=== PATIENT | female | born 1995 | race African-American/Black ===

== ENCOUNTER 2024-01-31 10:30 | Day surgery (SDC) | payer OTHER ==
[2024-01-31 11:17] VITALS: BMI 46.0
== END 2024-01-31 14:03 | disposition home or self-care (01) ==
LOC: CSHLD/OP 10:30
PROVIDERS: ATTEND Family Medicine
DX: Z36.89 Encounter for other specified antenatal screening (principal); O30.009 Twin pregnancy, unspecified number of placenta and unspecified number of amniotic sacs, unspecified trimester; Z3A.00 Weeks of gestation of pregnancy not specified
CPT/HCPCS: 76819

== ENCOUNTER 2024-02-10 12:52 | Inpatient (IN) | payer OTHER ==
[2024-02-10 13:46] VITALS: BMI 46.6
[2024-02-10] MEDS ORDERED: Diphenoxylate HCl/Atropine Tablet PO PRN (14:53)
[2024-02-10] MEDS ORDERED: Ondansetron PF 4 MG/2 ML Vial IVP PRN ×2 (14:53→20:26)
[2024-02-10] MEDS ORDERED: hydrALAZINE 20 MG/ML VIAL SLOW IVP PRN (14:53)
[2024-02-10] MEDS ORDERED: Carboprost 250 MCG/ML AMP IM PRN (14:53)
[2024-02-10] MEDS ORDERED: Promethazine HCl 25 MG/ML VIAL IM PRN ×3 (14:53→22:25)
[2024-02-10] MEDS ORDERED: Tranexamic Acid 1,000 MG/10 ML VIAL IVP PRN (14:53)
[2024-02-10] MEDS ORDERED: Lidocaine 1% (PF) 30 ML VIAL SC PRN (14:53)
[2024-02-10] MEDS ORDERED: Acetaminophen 500 MG TAB PO PRN (14:53)
[2024-02-10] MEDS ORDERED: Misoprostol 200 MCG TAB PR PRN (14:53)
[2024-02-10] MEDS ORDERED: Methylergonovine 0.2 MG/ML VIAL IM PRN (14:53)
[2024-02-10] MEDS ORDERED: HYDROcodone/Acetaminophen 5/325 mg Tablet PO PRN (14:53)
[2024-02-10] MEDS ORDERED: fentaNYL 50 mcg/mL 1 mL Vial SLOW IVP PRN (14:53)
[2024-02-10] MEDS ORDERED: Ibuprofen 800 MG TAB PO PRN (14:53)
[2024-02-10] MEDS ORDERED: Misoprostol 100 MCG TAB VAG SCH (15:00)
[2024-02-10] MEDS ORDERED: Lactated Ringer's 1,000 ML IV SCH (15:00)
[2024-02-10] MEDS ORDERED: Oxytocin 30 units/NS 500 ML 500 ML IV SCH ×2 (15:00)
[2024-02-10 15:18] LABS: Hemoglobin 12.1 g/dL (12.0-15.5); Mean Corpuscular HGB CONC 32.7 g/dL (32.0-36.0); Mean Corpuscular Hemoglobin 24.4 pg (27.0-33.0); Mean Corpuscular Volume 74.7 fL (81.6-98.3); Mean Platelet Volume 13.8 fL (7.4-10.4); Platelet Count 226 10x3/uL (150-450); RBC Distribution Width 15.3 % (11.5-14.5); Red Blood Cell (RBC) Count 4.95 10x6/uL (3.90-5.03); White Blood Cell (WBC) Count 6.7 10x3/uL (3.5-10.5)
[2024-02-10 15:44] LABS: Syphilis Antibody Nonreactive (Nonreactive); Syphilis Antibody Index 0.06 S/CO (<1.00 Non-Reactive)
[2024-02-10 15:45] LABS: HBsAg Index 0.15 S/CO (0-0.99); Hep B Surf Ag - L&D Non-Reactive S/CO (NonReactive)
[2024-02-10] MEDS ORDERED: Penicillin G 2.5 MILL.units 2.5 MILL.UNITS in Premix 1 BAG IVPB SCH (15:45)
[2024-02-10] MEDS: Oxytocin 30 units/NS 500 ML 500 ML IV SCH (17:11)
[2024-02-10] MEDS: Penicillin G Potassium 5 MILL.UNITS in Sodium Chloride 0.9% 100 ML IVPB SCH (17:15)
[2024-02-10] MEDS ORDERED: Penicillin G Potassium 2.5 UNITS in Syringe 0 ML IVPB SCH (19:45)
[2024-02-10] MEDS: fentaNYL/Ropivacaine Epidural 100 ML ONE (20:23)
[2024-02-10] MEDS ORDERED: ePHEDrine Sulfate 50 MG/10 ML VIAL SLOW IVP PRN (20:26)
[2024-02-10] MEDS ORDERED: Moisturizing Cream (Eucerin) 113 GM JAR TOP PRN ×2 (20:26→22:25)
[2024-02-10] MEDS ORDERED: diphenhydrAMINE 50 MG/ML VIAL IVP PRN ×2 (20:26→22:25)
[2024-02-10] MEDS ORDERED: Acetaminophen 325 MG TAB PO PRN (20:26)
[2024-02-10] MEDS ORDERED: Naloxone HCl 0.4 mg/ml Vial IVP PRN ×4 (20:26→22:25)
[2024-02-10] MEDS ORDERED: Lactated Ringer's 500 ML IV PRN (20:26)
[2024-02-10] MEDS ORDERED: fentaNYL 2 mcg/Ropivacaine 0.2% Epidural 100 ML CADD EPIDURAL SCH (20:30)
[2024-02-10] MEDS ORDERED: Communication Order-Pharmacy FS SCH ×2 (20:30→22:30)
[2024-02-10] MEDS ORDERED: Naloxone HCl 0.4 mg/ml Vial IV PRN (22:25)
[2024-02-11] MEDS: Ketorolac Tromethamine 30 MG (1 mL) VIAL IVP PRN (01:09)
[2024-02-11] MEDS ORDERED: Ondansetron PF 4 MG/2 ML Vial IVP PRN (02:02)
[2024-02-11] MEDS ORDERED: Promethazine HCl 25 MG/ML VIAL IM PRN (02:02)
[2024-02-11] MEDS ORDERED: Bisacodyl 10 MG SUPP PR PRN (02:02)
[2024-02-11] MEDS ORDERED: Lanolin Ointment 7 GM TUBE TOP PRN (02:02)
[2024-02-11] MEDS ORDERED: diphenhydrAMINE 25 MG CAP PO PRN (02:02)
[2024-02-11] MEDS ORDERED: hydrALAZINE 20 MG/ML VIAL SLOW IVP PRN (02:02)
[2024-02-11 03:24] LABS: Hematocrit 35.2 % (34.9-44.5); Mean Corpuscular HGB CONC 31.3 g/dL (32.0-36.0); Mean Corpuscular Hemoglobin 23.9 pg (27.0-33.0); Mean Corpuscular Volume 76.4 fL (81.6-98.3); Mean Platelet Volume 12.8 fL (7.4-10.4); Platelet Count 224 10x3/uL (150-450); Red Blood Cell (RBC) Count 4.61 10x6/uL (3.90-5.03); White Blood Cell (WBC) Count 13.4 10x3/uL (3.5-10.5)
[2024-02-11] MEDS: Dexamethasone 4 mg/ml Vial ONE (04:51)
[2024-02-11] MEDS: Oxytocin 30 units/NS 500 ML 500 ML ONE (04:51)
[2024-02-11] MEDS: CEFAZOLIN 2 GM VIAL ONE (04:52)
[2024-02-11] MEDS: Azithromycin 500 MG VIAL ONE (04:52)
[2024-02-11] MEDS: Morphine PF 10 MG/10 ML VIAL ONE (04:52)
[2024-02-11] MEDS: Oxytocin 10 UNITS/ML VIAL ONE (04:52)
[2024-02-11] MEDS: Ondansetron PF 4 MG/2 ML Vial ONE (04:52)
[2024-02-11] MEDS: PHENYLEPHRINE-NS 100 MCG/ML 10 ML SYRINGE ONE (04:53)
[2024-02-11] MEDS: Ondansetron PF 4 MG/2 ML Vial IVP PRN (05:17)
[2024-02-11] MEDS: Ketorolac Tromethamine 30 MG (1 mL) VIAL IVP SCH (06:11)
[2024-02-11] MEDS: Boostrix 0.5 ML (Tdap) VIAL (>/=7 yrs of age) IM ONE (07:21)
[2024-02-11] MEDS: Ferrous Sulfate 325 MG TAB PO SCH (07:52)
[2024-02-11] MEDS: Docusate 100 MG CAP PO SCH (07:52)
[2024-02-11] MEDS: Prenatal Vitamin 1 TAB PO SCH (07:53)
[2024-02-11] MEDS ORDERED: Meperidine HCl/PF 25 MG (1 mL) VIAL IM PRN (10:30)
[2024-02-11] MEDS: HYDROcodone/Acetaminophen 5/325 mg Tablet PO PRN ×2 (18:11→22:23)
[2024-02-12] MEDS: Ibuprofen 800 MG TAB PO SCH (05:57)
[2024-02-12] MEDS: Simethicone Chewable 80 MG TAB PO PRN (23:33)
[2024-02-13 08:08] VITALS: BP 140/67; TEMP 98.1
== END 2024-02-13 14:00 | disposition home or self-care (01) | DRG 787 ==
LOC: CSHLD/OP 12:52 → CSHLD 14:52 → CSHPP 02-11 01:15
PROVIDERS: ADMIT Family Medicine; ATTEND Family Medicine
PROC: 10D00Z1 Extraction of Products of Conception, Low, Open Approach (ICD-10-PCS; principal; 2024-02-10)
PROC: 10907ZC Drainage of Amniotic Fluid, Therapeutic from Products of Conception, Via Natural or Artificial Opening (ICD-10-PCS; 2024-02-10)
DX: O30.043 Twin pregnancy, dichorionic/diamniotic, third trimester (principal); O10.92 Unspecified pre-existing hypertension complicating childbirth; Z3A.36 36 weeks gestation of pregnancy; Z37.2 Twins, both liveborn; O99.214 Obesity complicating childbirth; E66.01 Morbid (severe) obesity due to excess calories; O36.5930 Maternal care for other known or suspected poor fetal growth, third trimester, not applicable or unspecified; O40.3XX0 Polyhydramnios, third trimester, not applicable or unspecified; O76 Abnormality in fetal heart rate and rhythm complicating labor and delivery
CPT/HCPCS: 36415; 51702; 59020; 85027; 86780; 86850; 86900; 86901; 87340; 88307; 99285; C1889; J1100; J1885; J2274; J2405; J2540; J2590; J3490